=== PATIENT | female | born 1950 | race Caucasian/White ===

== ENCOUNTER 2018-09-04 11:39 | Inpatient (IN) ==
--- NOTE | 2018-09-03 22:26 | Discharge Summary ---
<Blank Miller - Last Filed: 09/04/18 16:37> Orders not resulted at time of discharge: Pending orders 09/04/18 00:01 XR hip complete RT [XR] Routine H/H [Hemoglobin and Hematocrit] [HEME] Routine - Discharge Diagnosis (1) Status post total hip replacement, right Priority: Primary Status: Acute (2) Arthritis of right hip Priority: Primary Status: Acute (3) HLD (hyperlipidemia) Priority: Secondary Status: Chronic Qualifiers: Hyperlipidemia type: mixed hyperlipidemia Qualified Code(s): E78.2 - Mixed hyperlipidemia (4) DM2 (diabetes mellitus, type 2) Priority: Secondary Status: Chronic Qualifiers: Diabetes mellitus dedicated intermodal truck driver insulin use: without dedicated intermodal truck driver use Diabetes mellitus complication status: with unspecified complications Qualified Code(s): E11.8 - Type 2 diabetes mellitus with unspecified complications (5) Acute blood loss anemia Priority: Secondary Status: Acute - Hospital Course Hospital course: Ms. Lozano is a 68 year old female - Time Spent with Patient Total time spent providing and/or coordinating discharge services: - Discharge Medications Home Medications: Aspirin Enteric Coated [Aspirin EC] 325 mg PO BID #20 tablet.dr 09/03/18 [Rx] OxyCODONE Immed Rel [Roxicodone 5 MG] 5 mg PO Q6HR PRN 7 Days #28 tablet 09/03/18 [Rx] Gabapentin [Neurontin] 300 mg PO HS 09/04/18 [History] Ibuprofen [Advil] 200 mg PO Q6H PRN 09/04/18 [History] Metformin HCl 1,000 mg PO BID 09/04/18 [History] Simvastatin [Zocor] 10 mg PO HS 09/04/18 [History] glipiZIDE [Glipizide] 10 mg PO DAILY 09/04/18 [History] Allergies/Adverse Reactions: Allergy/AdvReac Type Severity Reaction Status Date / Time No Known Allergies Allergy Verified 09/04/18 12:08 Primary care physician: Mariela Phipps MD - Patient Status Disposition: Transfer SNF Condition: Good - Discharge Instructions Follow Up With: Blank Miller PAC [Physician Harbor Department Manager] - 09/14/18 9:30 am Mariela Phipps MD [Primary Care Provider] - Additional Instructions: Discharge Instructions: Total Hip Replacement Please call [facility] ([phone]), your Primary Care Physician, or report to the Emergency Room if you have any of the following symptoms: Nausea, vomiting, fever greater that 101.5, swelling, chest pain, shortness of breath, increased pain/redness/drainage/odor for your incision site, numbness/tingling, or any other concerning symptoms. ACTIVITY:Weight-bearing as tolerated for 8 weeks with hip dislocation precautions that physical therapy taught you. You may progress as tolerated under the guidance of your physical therapist. You do not need to sleep with a pillow between your legs. You can also seep on the operative side or on your stomach. Incentive Spirometer 10 times an hour. MEDICATIONS: Upon discharge resume your home medications. Take all the medications as prescribed. Take a stool softener if taking narcotic pain medications. Stool softeners are only effective if you drink enough fluids. Drink 6-8 glass of water or fluids a day, unless this is not allowed for another health problem. Despite using stool softeners, if you haven't had a bowel movement in 3 days, please switch to a gentle laxative. Gentle laxatives are sold over the counter. You should have a bowel movement within 24 hours, if not call the office. You will be discharged from the hospital with a prescription for pain medication. You are encouraged to decrease the use of narcotic pain medication as tolerated. Should you require a refill, please call the office. [facility] prescribes narcotic pain medication for only 4-6 weeks after surgery. If you require pain medication beyond this time period, you may be referred to your Primary Care Physician or to the Pain Clinic for further evaluation. Plan ahead for refills on pain medication as many narcotics either need to be picked up at the office or mailed. It is best to call 48-72 hours in advance of needing a prescription refill so you don't run out of medication. To help control the post-operative pain, you may take NSAIDs (Aleve,Advil, Motrin, ibuprofen, naprosyn) or Tylenol as prescribed on the bottle in addition to the pain medication. ANTICOAGULATION (blood thinners): Continue your Aspirin, Lovenox or Coumadin as prescribed to help prevent a blood clot in the leg or in the lungs. As long as your incision remains dry and you tolerate the NSAIDs (Aleve, Advil, Motrin, Ibu profen, Naprosyn), it is OK to use the NSAIDS while you are taking your anticoagulation medication. Should your incision start to drain, stop the NSAID and contact our office. Common symptoms of blood clot in the legs include: localized pain, swelling, calf tenderness, redness or discoloration of the skin. Blood clot in the lung symptoms include: shortness of breath, rapid pulse, sweating, and chest pain that worsens with deep breathing, coughing up blood, lightheadedness, feelings of anxiety. If you experience any of these symptoms notify your physician immediately, go to the emergency room, or if having trouble breathing, call 911. WOUND CARE: Leave the dressing on for 7 to 10days. You may change the dressing if it is saturated greater than 50%. Do not get the dressing wet at anytime. Wash your hands with antibacterial soap, rinse and dry prior to any wound care. If you have arun the visiting nurse or rehab facility can remove the stapes 10-14 days after surgery and place steri-strips across the wound. Leave the steri-strips in place until they fall off on their own. You may let water from the shower run on top of the steri-strips. If you do not have a visiting nurse or rehab facility, you will need to return to the office at 10-14 days for the arun to be removed. If you have itching or redness around the dressing call the office. FOLLOW-UP: Please follow up with your surgeon in the orthopedic clinic in 6 weeks from the day of surgery. If you have arun that need to be removed, you will need to come back to the office in 10-14 days from the day of surgery. <Yue Lara - Last Filed: 09/07/18 14:17> - NOTES TO OUTPATIENT PROVIDER Notes to Outpatient Provider: Needs repeat H/H on 09/08/18 Orders not resulted at time of discharge: Pending orders 09/04/18 11:20 US anesthesia pain block [US] Routine Date of Encounter: 09/07/18 Time of Encounter: 13:00 - Discharge Diagnosis (1) Status post total hip replacement, right Priority: Primary Status: Acute (2) Arthritis of right hip Priority: Primary Status: Acute (3) Acute blood loss anemia Priority: Secondary Status: Acute (4) DM2 (diabetes mellitus, type 2) Priority: Secondary Status: Chronic Qualifiers: Diabetes mellitus retirement insulin use: without retirement use Diabetes mellitus complication status: with unspecified complications Qualified Code(s): E11.8 - Type 2 diabetes mellitus with unspecified complications (5) HLD (hyperlipidemia) Priority: Secondary Status: Chronic Qualifiers: Hyperlipidemia type: mixed hyperlipidemia Qualified Code(s): E78.2 - Mixed hyperlipidemia - Hospital Course Hospital course: Ms. Lozano is a 68 year old female status post Right THR robotic 09/04/18 with a history of DMT2, anemia, HLD. She participated in therapy who recommended inpatient rehab. Hgb did decrease to 8.5 but is asymptomatic. [facility] have [facility]. She did have max temperature of 99.5 but this did normalize before discharge with reeducation of using incentive spirometer. She is otherwise asymptomatic and discussed this with Dr. Cavanaugh who is comfortable with patient being discharged. Stable for discharge today. Patient seen at bedside, without complaints. A&O x 3 Afebrile, vital signs stable. Dressings to be changed today before discharge. No new drainage. No calf tenderness to palpation. Grossly NV intact distally Labs reviewed. H/H - 9.3/28.7 on 09/05 8.8/27.2 on 09/06 - asymptomatic 8.5/26.5 on 09/07 - asymptomatic Pain control: adequate Participating in PT. She has not made the progress that she thought she would with therapy. Therapy is still recommending ECF and patient agreeable to this. All questions and concerns addressed. Educated on use of incentive spirometer. Encouraged ambulation and proper hydration. Patient educated on post-operative restrictions and post-operative care. Assessment and plan: Continue with postoperative care Discharge plan: ECF [facility] today - Time Spent with Patient Total time spent providing and/or coordinating discharge services: Date of admission: 09/04/18 15:15 Primary care physician: Mariela Phipps MD Consults: 09/04/18 15:13 Consult to Nurse Navigator [CONS] Routine Comment: ortho navigator Consult to Occupational Therapy [CONS] Routine Comment: Evaluate, develop and implement POC Reason for Consult: total hip replacement Does patient have active BEDREST order?: No Is patient medically & hemodynamically stable?: Yes Consult to Physical Therapy [CONS] Routine Comment: Evaluate, develop and implement POC Reason for Consult: total hip replacement Does patient have active BEDREST order?: No Is patient medically & hemodynamically stable?: Yes Consult to Service Captain [CONS] Routine Reason for SW Consult: post op joint replacement RT Post Op Consult [CONS] Routine Discharging clinician: Shawn Cavanaugh Anticipated date of discharge: 09/07/18 Labs on day of discharge: Labs from last 24 hours 09/07/18 09/06/18 09/06/18 05:22 20:53 16:09 Hgb 8.5 L Hct 26.5 L POC Glucose 187 H 147 H 09/06/18 09/06/18 09/05/18 10:56 07:05 19:35 Hgb Hct POC Glucose 81 204 H 301 H - Impressions ITS Impressions Hip X-Ray 09/04/18 00:01 IMPRESSION: Uncomplicated right total hip arthroplasty. D/ / 09/04/2018 15:53:21 Toby Becker MD / [email or web address] Interpreting Provider: Toby Becker MD - Patient Status Functional capacity at discharge: uses cane/walker Overall status at discharge: patient is progressing back to baseline - Diet and Activity Activity: as per physical therapy Diet: advance to your usual diet
--- NOTE | 2018-09-04 11:26 | Anesthesia Evaluation PreOp ---
Date of Encounter: 09/04/18 Time of Encounter: 11:24 - Past History Planned Operation: Robotic R-Total Hip Replacement Cardiac History: Hyperlipidemia Pulmonary History: Denies Any Significant HX EARLY CHILDHOOD EDUCATOR AIDE History: Denies Any Significant HX Other Medical History: Diabetes Type II, Other (R-Hip Arthritis) Anesthesia History: No Prior Anesthetic Complications, Past Anesthesia (C olonscopy, R-shoulder) : No Test: Negative Alcohol Use: unknown Drug use: unknown Medications and Allergies Aspirin Enteric Coated [Aspirin EC] 325 mg PO BID #20 tablet.dr 09/03/18 [Rx] OxyCODONE Immed Rel [Roxicodone 5 MG] 5 mg PO Q6HR PRN 7 Days #28 tablet 09/03/18 [Rx] Allergy/AdvReac Type Severity Reaction Status Date / Time No Known Allergies Allergy Verified 09/04/18 12:02 - Meds/Allergy Pre-op Review Medications Reviewed: Yes Allergies Reviewed: Yes Beta Blockers on Current Med List: No Anesthesia Results - Labs Laboratory Tests 08/24/18 08/24/18 08/24/18 10:56 10:56 10:56 WBC 8.0 Hgb 13.1 Hct 41.1 Plt Count 330 PT 10.7 INR 1.0 APTT 29.5 Sodium Potassium Chloride Carbon Dioxide BUN Creatinine Est GFR (Non-Af Amer) Est Mean Plasma Glucose 166 Hemoglobin A1c 7.4 H 08/24/18 10:56 WBC Hgb Hct Plt Count PT INR APTT Sodium 135 L Potassium 4.1 Chloride 102 Carbon Dioxide 25 BUN 15 Creatinine 0.63 Est GFR (Non-Af Amer) > 60 Est Mean Plasma Glucose Hemoglobin A1c - Imaging EKG: report reviewed (95bpm - SINUS RHYTHM Electronically Signed On 08-26-2018 19:01:20 EDT by Tomy Hinton) Anesthesia Exam O2 Sat Height 1.6 m Weight 60.328 kg O2 Sat by Pulse Oximetry 98 Vital Signs Temp Pulse Resp BP Pulse Ox 98.3 F 96 18 132/90 98 09/04/18 12:00 09/04/18 12:00 09/04/18 12:00 09/04/18 12:00 09/04/18 12:00 Blood glucose: 232 Height: 5'3" Weight: 133# BMI = 23 NPO (# of Hours): MnOC - HEENT Pupil (Motor): Pupils equal, EOMI Mallampati: II Teeth: Normal Oral Opening: Greater than 3 - EARLY CHILDHOOD EDUCATOR AIDE LOC: Oriented EARLY CHILDHOOD EDUCATOR AIDE Motor: Normal RUE, Normal LUE, Normal RLE, Normal LLE, Normal Face EARLY CHILDHOOD EDUCATOR AIDE Sensory: Normal: RUE, LUE, RLE, LLE, Face - Cardiac Rhythm: Regular Murmur: None - Pulmonary Breath Sounds: bilateral Clear Respiratory Effort: Symmetrical Anesthesia Assess/Plan ASA Score: 2 (Chol, DM) Modified [place] Scale for Level of Consciousness: Cooperative, oriented, and tranquil Anesthetic Plan: General, Regional Monitoring Plan: Standard Monitors Recovery Plan: PACU Anes Supervising Prov Stmt: Pt seen/evaluated, R&B discussed, questions answered and consent obtained. Vladislav Ellis MD
[~2018-09-04 11:39] MED LIST: Acetaminophen IV 1,000 MG/100 ML INFUS..BTL IVPB ONE; Famotidine 20 MG/2 ML VIAL IVP ONE; Pregabalin 75 MG CAPSULE PO ONE
[2018-09-04] MEDS: Ringers Solution, Lactated 1,000 ML IVC SCH ×3 (11:40→17:10)
--- NOTE | 2018-09-04 11:42 | History & Physical Report ---
Date of Encounter: 09/04/18 Time of Encounter: 11:42 24 Hour HP Update - Instructions Instructions: If the History and Physical is less than 30 days old and was completed prior to A.M. admission and or procedure and has NOT been updated on calendar day of procedure please complete this update prior to performing procedure. - Update Patient reports changes in Medical Condition: No Changes in examination, assessment, or condition: No Changes in Medication: No Preop tests/diagnostics Reviewed: Yes Surgery Remains Indicated: Yes Consent for Planned Operative Procedure(s) Verified: Yes - Pre-Operative Checklist Preoperative Checklist Indicated: No Prophylactic Antibiotic Ordered: Yes Is VTE Prophylaxis Indicated?: Yes
[2018-09-04] MEDS ORDERED: CeFAZolin Syr 2,000MG/20 ML 2,000 MG/20 ML SYRINGE IVPB ONE (12:02)
[2018-09-04] MEDS ORDERED: Ethanol\\Acetic Acid\\Na Ace\\Ben 1,000 ML IRRIG.SOLN IR ONE (12:06)
[2018-09-04] MEDS ORDERED: ROPIVACAINE HCL/PF 0.5% 30 ML VIAL ONE (12:06)
[2018-09-04] MEDS ORDERED: Tetracaine/PF 20 MG/2 ML AMPUL ONE (12:06)
[2018-09-04] MEDS ORDERED: Dexamethasone 4 MG/ML VIAL IVP ONE (12:17)
[2018-09-04] MEDS ORDERED: *HR* HYDROmorphone (PF) 1 MG/ML SYRINGE IVP PRN (12:17)
[2018-09-04] MEDS ORDERED: *HR* Labetalol 20 MG/4 ML SYRINGE IVP PRN (12:17)
[2018-09-04] MEDS ORDERED: *HR* Promethazine 25 MG/ML VIAL IVP PRN (12:17)
[2018-09-04] MEDS ORDERED: Ondansetron 4 MG/2 ML VIAL IVP ONE (12:17)
[2018-09-04] MEDS ORDERED: Morphine Sulfate/PF 5mg/10mL Vial ONE (12:23)
[2018-09-04] MEDS ORDERED: Lidocaine -MPF 1% 5 ML AMPUL ONE (12:36)
[2018-09-04] MEDS ORDERED: Lidocaine -MPF 2% 2 ML VIAL ONE (12:47)
[2018-09-04] MEDS ORDERED: Propofol 500 MG/50 ML INFUS..BTL ONE (12:47)
[2018-09-04] MEDS ORDERED: Dexamethasone 4 MG/ML VIAL ONE (12:47)
[2018-09-04] MEDS ORDERED: *HR* Midazolam HCl 2 MG/2 ML VIAL ONE (12:47)
[2018-09-04] MEDS ORDERED: *HR* Propofol 200 MG/20 ML VIAL IVP ONE (12:47)
[2018-09-04] MEDS ORDERED: Ondansetron 4 MG/2 ML VIAL ONE (12:47)
[2018-09-04] MEDS ORDERED: EPHEDrine 50 MG/ML VIAL ONE (13:01)
[2018-09-04] MEDS ORDERED: *HR* PHENYLEPHRINE 1,000 MCG/10 ML SYRINGE IVP ONE (13:22)
--- NOTE | 2018-09-04 13:25 | Anesthesia Procedures ---
Date of Encounter: 09/04/18 Time of Encounter: 12:35 Procedures: Anesthesia - Epidural/Spinal Patient ID/Chart reviewed: Yes Patient examined: Yes Consent Obtained: Yes Supplemental Oxygen: Nasal Cannula Supplemental Oxygen Rate (L/min): 2 Sedation: Versed (mg): 2 Site Prep: Sterile prep and drape, Povidone-Iodine 1% Patient position: upright Local Anesthetic: Lidocaine 1% Amount of Local Anesthetic used: 3 Interspace Used: L3-L4 Blood: No CSF: Yes Paresthesia: No Spinal Needle Gauge: 22 Spinal Dose: 2.5cc 0.5% PF marcaine with 250mcg PF duramorph Procedure: sitting in HR1, monitors and O2 applied, time-out performed. Sterile prep/drape, 1% lido to L3-4, 22g quincke to interspace, +csf, -heme, -paresthesia, smooth inj., naac. Performed by srna. aston
--- NOTE | 2018-09-04 14:01 | Orthopedic Operative Note ---
Date of procedure: 09/04/18 Pre-op diagnosis: Right hip OA Post-op diagnosis: same Procedure: Procedure: Right Total Hip Replacment robotic-assisted Estimated blood loss: 200 cc Hardware: Metal and polyethylene replacement. [place] DM Cup: 52 cup Femoral size 6 stem Head: 12 head with Sanjana Procedural Notes: Grade 4 arthritic changes femoral head acetabular socket, procedure performed with robotic assistance. 5 mm short operative vs non operative as per preop CT scan Operative procedure: The patient was brought to the operating room and placed on the operating room table. After general anesthesia was administered the patient was placed in the lateral decubitus position with the operative leg up. All pressure points were padded appropriately and the head was stabilized in the neutral position. The operative extremity was prepped and draped in the sterile surgical fashion patient received IV antibiotic prior to skin incision. 3 Steinmann pins were placed in the iliac crest 3 cm proximal to the anterior superior iliac spine this was for the robotic-assisted sensor. This was done through a small 2 cm incision. A standard posterior approach is made to the operative hip, the incision was made through the skin and subcutaneous tissue hemostasis was obtained with Bovie cautery. Using careful sharp dissection the fascia was identified and incised exposing the external rotators. The greater trochanter was marked, and length was measured at this time utilizing robotic assistance. The external rotators were released off the greater trochanter and tagged with #2 FiberWire suture. The capsule was T'd open and the hip was brought into internal rotation. Patient noted to have grade 4 arthritic changes femoral head. The femoral neck cut was made at the appropriate level roughly 15 mm proximal to the lesser t rochanter aced on preoperative templating. An anterior capsulotomy was performed for the anterior retractor. Soft tissues removed from the acetabulum. Patient noted to have grade 4 arthritic changes acetabulum. The acetabulum reference point was confirmed. The acetabulum was then mapped with robotic assistance. Based on the preoperative plan the acetabulum was reamed in one step with a 51 reamer. The 52 acetabulum was impacted with robotic assistance and 37 degrees of abduction and 22 degrees of anteversion. The hip was brought back in to internal rotation and prepared with the box cut ter followed by the canal finder followed by the reaming process to a size 5/6 broaching process in 20 degrees anteversion. It was broached up to the appropriate size 6 Trial reduction revealed leg lengths close to normal. The femoral implant was impacted in place in 20 degrees of anteversion. Trial reduction found the hip to be stable with 12 head and Sanjana. The trials were removed and the real implants were impacted in place. The hip was reduced, patient had robotic confirmed leg length of 13 mm longer than the contralateral side. The hip had excellent stability with forward flexion to 90 degrees adduction of 30 degrees and internal rotation of 60 degrees. The hip had no shuck. The hip sat with an antibacterial solution. It was irrigated out with 2 L of pulse irrigation. The Steinmann pins were removed. The hip was closed by the PA. The deep tissue was irrigated and closed deep with #1 PDS suture superficially with 0 PDS suture and skin was closed with Dermabond and zip tie. The patient was placed in a sterile dressing and abduction pillow. The patient was extubated and transferred to the recovery room in stable condition. Anesthesia: spinal Surgeon: Shawn Cavanaugh Was there an cafe assistant present: No Estimated blood loss (cc): 200 Condition: stable Disposition: PACU
[2018-09-04] MEDS ORDERED: *HR* Dextrose 50 % in Water (Syg) 50 ML SYRINGE IVP PRN (15:13)
[2018-09-04] MEDS ORDERED: Naloxone 0.4 MG/ML INJ IVP PRN (15:13)
[2018-09-04] MEDS ORDERED: Temazepam 15 MG CAPSULE PO PRN (15:13)
[2018-09-04] MEDS ORDERED: MOM Conc 10 ML UD.LIQ PO PRN (15:13)
[2018-09-04] MEDS ORDERED: Dextrose Gel 15 GM/37.5 ML TUBE PO PRN ×2 (15:13)
[2018-09-04] MEDS ORDERED: D5% in Water 1,000 ML IVC PRN (15:13)
[2018-09-04] MEDS ORDERED: Sennosides 8.6 MG TABLET PO PRN (15:13)
[2018-09-04 15:20] LABS: Hematocrit 31.5 % (35.3-44.9); Hemoglobin 10.2 g/dL (11.5-15.4)
--- NOTE | 2018-09-04 15:40 | Anesthesia Evaluation Post Op ---
Date of Encounter: 09/04/18 Time of Encounter: 15:20 - Vital Signs Vital Signs: Vital Signs/O2 Sat, Most Current Temp Pulse Resp BP Pulse Ox 97.1 F L 68 16 109/63 96 09/04/18 14:52 09/04/18 15:12 09/04/18 15:12 09/04/18 15:12 09/04/18 15:12 - Lungs Lungs: Clear Ascult./Percussion - Airway Airway: Non-obstructed, Obstructed - Cardiovascular Regular Rate, Baseline Rhythm - Mental Status Mental Status: Alert & Oriented, Answers Appropriately - Pain Pain Scale: 0 Pain Scale used: Numeric (1 - 10) - Nausea Vomiting Nausea Vomiting: Not Present - Hydration Hydration: Tolerates oral liquids, Ice chips, Has not voided - Discharge PostOp Status: Transfer Patient to floor
--- NOTE | 2018-09-04 16:39 | Physician Discharge Referral ---
Home Health/Hosp Referral Info Transfer to: Home Health Attending Provider: Provider in Charge Post Discharge: PCP - Diagnosis (1) Status post total hip replacement, right Priority: Primary Status: Acute (2) Arthritis of right hip Priority: Primary Status: Acute (3) HLD (hyperlipidemia) Status: Chronic (4) DM2 (diabetes mellitus, type 2) Status: Chronic (5) Acute blood loss anemia Status: Acute - Respiratory Orders Smoking Cessation: Smoking cessation has been advised. For more information, call the [place] Tobacco Quit Line at 7-979-VGPE-NOW. - Diet/Nutrition Diet/Nutrition Orders: Regular - Activity Activity Orders: Up ad connie, Ambulate - Services Needed Following services are medically necessary services: Nursing, Home Health Aide, Physical Therapy, Occupational Therapy Home Care Orders: Opsite placed. Keep dressing intact until first follow up appointment. If > 50% saturated, notify office, remove dressing and place appropriate dressing back in place. Leave Zipline intact. Opsite dressing is water resistant, not water- proof. OK to shower, but do not get dressing wet Total Hip replacement Precautions Apply cold therapy 3-6x/day for 20 minutes at a time. Encourage ambulation throughout the day and incentive spirometer 10x/hour. Elevate affected extremity as tolerated. Brace: Wear hip abduction pillow when laying/sleeping. - Transfer Medications Home Medications: Aspirin Enteric Coated [Aspirin EC] 325 mg PO BID #20 tablet. 09/03/18 [Rx] OxyCODONE Immed Rel [Roxicodone 5 MG] 5 mg PO Q6HR PRN 7 Days #28 tablet 09/03/18 [Rx] Gabapentin [Neurontin] 300 mg PO HS 09/04/18 [History] Ibuprofen [Advil] 200 mg PO Q6H PRN 09/04/18 [History] Metformin HCl 1,000 mg PO BID 09/04/18 [History] Naproxen Sodium [Aleve] 220 mg PO Q8H PRN 09/04/18 [History] Simvastatin [Zocor] 10 mg PO HS 09/04/18 [History] glipiZIDE [Glipizide] 10 mg PO DAILY 09/04/18 [History] Allergies/Adverse Reactions: Allergy/AdvReac Type Severity Reaction Status Date / Time No Known Allergies Allergy Verified 09/04/18 12:08 Certification: Further, I certify that my clinical findings support that this patient is homebound (i.e. absences from home require considerable and taxing effort and are for medical reasons or orthodoxy services or infrequently or short duration when for other reasons) because: Homebound Reason: Post-surgery restriction and or conditions limit ability to leave home Attestation: My signature below is to certify that this patient is under my care and that I, or nurse practitioner, or a physician's seed laboratory assistant working with me, has a [id number] encounter with this patient.
[2018-09-04] MEDS: *HR* Metformin 500 MG TABLET PO SCH (17:10)
[2018-09-04] MEDS: Ascorbic Acid 500 MG TABLET PO SCH (17:10)
[2018-09-04] MEDS: Insulin LISPRO 300 UNITS/3 ML VIAL SQ SCH ×2 (17:11→22:12)
[2018-09-04] MEDS: *HR* Enoxaparin 30 MG/0.3 ML SYRINGE SQ SCH (17:11)
[2018-09-04] MEDS ORDERED: *HR* Enoxaparin 30 MG/0.3 ML SYRINGE SQ SCH (18:00)
[2018-09-04] MEDS: Ondansetron 4 MG/2 ML VIAL IVP PRN (21:02)
[2018-09-04] MEDS: Gabapentin 300 MG CAPSULE PO SCH (22:11)
[2018-09-04] MEDS: traMADol 50 MG TABLET PO PRN (22:32)
[2018-09-05] MEDS: Ringers Solution, Lactated 1,000 ML IVC SCH (05:44)
[2018-09-05] MEDS: *HR* Enoxaparin 30 MG/0.3 ML SYRINGE SQ SCH ×2 (05:46→17:40)
--- NOTE | 2018-09-05 06:19 | Orthopedics Progress Note ---
Date of Encounter: 09/05/18 Time of Encounter: 06:19 Subjective Interval history: Patient was seen this morning doing well without complaints. Afebrile vital signs stable. Operative extremity: Neurovascularly intact Dressing clean dry and intact Calves nontender Assessment and plan: Continue with postoperative care Objective Vital signs: Vital Signs Temp Pulse Resp BP Pulse Ox 09/05/18 03:37 97.9 F 82 16 137/68 96 09/04/18 23:13 97.6 F 72 16 107/67 98 09/04/18 18:18 98.1 F 76 16 110/71 97 09/04/18 17:40 97.4 F L 88 15 108/66 94 09/04/18 16:35 97.3 F L 79 14 107/69 97 09/04/18 16:05 96.6 F L 64 14 109/71 98 09/04/18 15:25 96.4 F L 66 16 105/65 96 09/04/18 15:12 68 16 109/63 96 09/04/18 15:02 71 16 104/64 92 09/04/18 14:52 97.1 F L 73 16 103/64 95 09/04/18 14:42 87 16 100/73 95 09/04/18 14:32 88 16 97/55 97 09/04/18 14:22 97.0 F L 97 24 99/66 98 09/04/18 12:42 77 14 136/80 98 09/04/18 12:34 95 16 167/97 99 09/04/18 12:00 98.3 F 96 18 132/90 98 Intake and Output 09/04/18 09/04/18 09/05/18 15:59 23:59 07:59 Intake Total 1000 / 1000 100 / 100 2720 / 2720 Output Total 200 / 200 700 / 700 Balance 800 / 800 100 / 100 2019 Intake: IV Fluids 1000 / 1000 100 / 100 2120 / 2120 Lactated Ringers 1,000 ML @ 75 1000 / 1000 2000 / 2000 mls/hr IVC .[id number] [facility] Rx#: [id number] Ancef Syringe 2,000 MG/20 ML 2, 20 / 20 000 mg In 20 ml @ 200 mls/hr IVPB PREOP ONE Rx#:[id number] Ancef 2,000 MG In 0.9 % Sodium 100 / 100 Chloride 100 ML @ 200 mls/hr IVPB Q8H [facility] Rx#:[id number] Oral 600 / 600 Output: Urine 700 / 700 Estimated Blood Loss 200 / 200 Other: # Voids 1 Weight 60.328 kg 60.33 kg Blood Glucose* 232 229 Patient Weight 09/05/18 23:59 Weight 60.33 kg - Labs CBC & BMP: 09/04/18 14:52 Labs: Abnormal lab results Hgb 10.2 g/dL (11.5-15.4) L 09/04/18 14:52 Hct 31.5 % (35.3-44.9) L 09/04/18 14:52 POC Glucose 232 mg/dL (70-99) H 09/04/18 11:56 - VTE Documentation of Mechanical Device: Venous foot pump, device Consult Discharge Plan - Plan Referrals: Mariela Phipps MD [Primary Care Provider] -
[2018-09-05] MEDS: *HR* OxyCODONE/APAP 5/325 TABLET PO PRN (06:22)
[2018-09-05 06:23] LABS: Hematocrit 28.7 % (35.3-44.9); Hemoglobin 9.3 g/dL (11.5-15.4)
[2018-09-05 06:39] LABS: BUN/Creatinine Ratio 19 (6-26); Blood Urea Nitrogen 8 mg/dL (8-23); Calcium 8.6 mg/dL (8.6-10.3); Carbon Dioxide 25 mEq/L (23-29); Chloride 104 mEq/L (98-107); Glucose 266 mg/dL (70-105); Osmolality,Calculated 286 (280-300); Sodium 134 mEq/L (136-145); eGFR For Non-African Americans > 60 (> 60)
[2018-09-05] MEDS: Insulin LISPRO 300 UNITS/3 ML VIAL SQ SCH ×4 (08:54→20:07)
[2018-09-05] MEDS: *HR* GlipiZIDE 5 MG TABLET PO SCH (08:55)
[2018-09-05] MEDS: *HR* Metformin 500 MG TABLET PO SCH ×2 (08:55→17:40)
[2018-09-05] MEDS: Ascorbic Acid 500 MG TABLET PO SCH ×2 (08:55→17:40)
[2018-09-05] MEDS: Multivit/Ca/Min/Fe/FA 1 TAB TABLET PO SCH (08:55)
[2018-09-05] MEDS: *HR* OxyCODONE Immed Rel 5 MG TABLET PO PRN ×2 (15:26→20:09)
[2018-09-05] MEDS: traMADol 50 MG TABLET PO PRN (17:40)
--- NOTE | 2018-09-05 19:05 | Event Note ---
Date of Encounter: 09/05/18 Time of Encounter: 12:30 PCR - POD#1 s/p Right THR robotic 09/04 Patient seen at bedside, without complaints. A&O x 3 Afebrile, vital signs stable. Labs reviewed. H/H - 9.3/28.7 stable, asymptomatic Pain control: adequate Participating in PT. Patient states she thought she would have better motion right after surgery than she is having and at this time she is concerned about safety going home. PT has recommended ECF placement for rehab. Patient would like to see how she progresses with afternoon therapy and again in the morning before deciding ECF vs home therapy. All questions and concerns addressed. Educated on use of incentive spirometer. Encouraged ambulation and proper hydration. Patient educated on post-operative restrictions and post-operative care. Assessment and plan: Continue with postoperative care Discharge plan: ECF vs HH depending on progress made with therapy by tomorrow
[2018-09-05] MEDS: Gabapentin 300 MG CAPSULE PO SCH (20:09)
[2018-09-05] MEDS ORDERED: Ketorolac 30 MG/ML VIAL IVP PRN (22:18)
[2018-09-05] MEDS: Acetaminophen IV 1,000 MG/100 ML INFUS..BTL IVPB SCH (23:15)
[2018-09-06] MEDS: *HR* OxyCODONE Immed Rel 5 MG TABLET PO PRN ×2 (01:17→21:03)
[2018-09-06 04:58] LABS: Hematocrit 27.2 % (35.3-44.9); Hemoglobin 8.8 g/dL (11.5-15.4)
[2018-09-06 05:09] LABS: BUN/Creatinine Ratio 23 (6-26); Blood Urea Nitrogen 9 mg/dL (8-23); Calcium 8.1 mg/dL (8.6-10.3); Carbon Dioxide 24 mEq/L (23-29); Chloride 104 mEq/L (98-107); Glucose 215 mg/dL (70-105); Osmolality,Calculated 285 (280-300); Potassium 3.6 mEq/L (3.5-5.1); Sodium 135 mEq/L (136-145); eGFR For Non-African Americans > 60 (> 60)
--- NOTE | 2018-09-06 06:41 | Orthopedics Progress Note ---
Date of Encounter: 09/06/18 Time of Encounter: 06:40 Subjective Interval history: Patient was seen this morning doing well without complaints. Afebrile vital signs stable. Operative extremity: Neurovascularly intact Dressing clean dry and intact Calves nontender Assessment and plan: Continue with postoperative care Hematocrit 27 Objective Vital signs: Vital Signs Temp Pulse Resp BP Pulse Ox 09/06/18 03:27 98.7 F 92 16 108/64 96 09/06/18 00:05 98.6 F 86 16 119/74 98 09/05/18 19:14 99.5 F 112 16 99/65 96 09/05/18 15:35 98.0 F 101 20 133/80 98 09/05/18 11:29 98.7 F 89 18 105/85 96 09/05/18 08:00 97.9 F 78 16 96/62 96 Intake and Output 09/05/18 09/05/18 09/06/18 15:59 23:59 07:59 Intake Total 340 / 340 100 / 100 100 / 100 Output Total 600 / 600 450 / 450 900 / 900 Balance -260 / -260 -350 / -350 -800 / -800 Intake: IV Fluids 100 / 100 Ofirmev 1,000 mg/100 ml 1,000 100 / 100 mg In 100 ml @ 400 mls/hr IVPB Q6HR [facility] Rx#:[id number] Oral 340 / 340 100 / 100 Output: Urine 600 / 600 450 / 450 900 / 900 Other: Meal Breakfast Percent of Meal Consumed 100% # Voids 1 Weight 61.2 kg Blood Glucose* 180 301 Patient Weight 09/06/18 23:59 Weight 61.2 kg - Labs CBC & BMP: 09/06/18 04:32 09/06/18 04:32 Labs: Abnormal lab results Hgb 8.8 g/dL (11.5-15.4) L 09/06/18 04:32 Hct 27.2 % (35.3-44.9) L 09/06/18 04:32 Sodium 135 mEq/L (136-145) L 09/06/18 04:32 Creatinine 0.40 mg/dL (0.60-1.20) L 09/06/18 04:32 Glucose 215 mg/dL (70-105) H 09/06/18 04:32 POC Glucose 180 mg/dL (70-99) H 09/05/18 15:57 Calcium 8.1 mg/dL (8.6-10.3) L 09/06/18 04:32 - VTE Documentation of Mechanical Device: Venous foot pump, device Consult Discharge Plan - Plan Referrals: Mariela Phipps MD [Primary Care Provider] -
[2018-09-06] MEDS: Acetaminophen IV 1,000 MG/100 ML INFUS..BTL IVPB SCH ×3 (06:45→19:10)
[2018-09-06] MEDS: *HR* Enoxaparin 30 MG/0.3 ML SYRINGE SQ SCH ×2 (06:45→18:31)
[2018-09-06] MEDS: Multivit/Ca/Min/Fe/FA 1 TAB TABLET PO SCH (07:49)
[2018-09-06] MEDS: *HR* Metformin 500 MG TABLET PO SCH ×2 (07:49→18:31)
[2018-09-06] MEDS: *HR* GlipiZIDE 5 MG TABLET PO SCH (07:49)
[2018-09-06] MEDS: Ascorbic Acid 500 MG TABLET PO SCH ×2 (07:50→17:53)
[2018-09-06] MEDS: Insulin LISPRO 300 UNITS/3 ML VIAL SQ SCH ×4 (07:50→21:14)
--- NOTE | 2018-09-06 12:47 | Physician Discharge Referral ---
ExtendedCare Referral Info Transfer To: [facility] Provider in Charge: Mao Loomis Diagnosis (1) Status post total hip replacement, right Priority: Primary Status: Acute (2) Arthritis of right hip Priority: Primary Status: Acute (3) Acute blood loss anemia Priority: Secondary Status: Acute (4) DM2 (diabetes mellitus, type 2) Priority: Secondary Status: Chronic (5) HLD (hyperlipidemia) Priority: Secondary Status: Chronic Expected Duration of Placement: <30 days Prognosis: Good Aware of Diagnosis: Patient Aware of Prognosis: Patient - Transfer Medications Home Medications: Aspirin Enteric Coated [Aspirin EC] 325 mg PO BID #20 tablet.dr 09/03/18 [Rx] OxyCODONE Immed Rel [Roxicodone 5 MG] 5 mg PO Q6HR PRN 7 Days #28 tablet 09/03/18 [Rx] Gabapentin [Neurontin] 300 mg PO HS 09/04/18 [History] Ibuprofen [Advil] 200 mg PO Q6H PRN 09/04/18 [History] Metformin HCl 1,000 mg PO BID 09/04/18 [History] Naproxen Sodium [Aleve] 220 mg PO Q8H PRN 09/04/18 [History] Simvastatin [Zocor] 10 mg PO HS 09/04/18 [History] glipiZIDE [Glipizide] 10 mg PO DAILY 09/04/18 [History] Allergies/Adverse Reactions: Allergy/AdvReac Type Severity Reaction Status Date / Time No Known Allergies Allergy Verified 09/04/18 12:08 - Respiratory Orders Smoking Cessation: Smoking cessation has been advised. For more information, call the [place] Tobacco Quit Line at 3-263-YQCZ-NOW. - Lab Orders Lab Orders: CBC (Needs repeat H/H on 09/08/18) - Ancillary Orders May use pressure relief devices daily prn, May go on NICANOR w/family/respon green party w/meds at nurse discretion PRN, May consult with Dentist, Customs Appraiser, Senior Consumer Insights Consultant PRN - Advance Directives Code Status: Full Code - Mobility Orders Chair, Ambulate - Rehabiliation Orders Rehab Potential: Good Rehab Orders: ROM Exercises, Evaluation for Physical Therapy, Evaluation for Occupational Therapy Other: Opsite dressing, leave intact until first post-operative visit. If dressing becomes >50% saturated, contact office, remove dressing and place appropriate dressing in its place. Do not allow for dressing to get wet. Zipline/Rupinder in place, plan to remove at post-operative day #14-16. Total Joint Precautions x 6 weeks Apply cold therapy wrap 3-6x/day for 20 minutes at a time. Encourage ambulation throughout the day Use Incentive spirometer 10x/hour. Elevate affected extremity above heart as tolerated. Brace: Wear hip abductor brace at night x 6 weeks. - Treatments Skin tear care topically daily PRN per policy - Diet Orders Regular CERTIFICATION: I certify that the transfer of the above named patient to an Extended Care Facility is necessary for the continuing treatment of the diagnosis listed. The above information is true and accurate reflection of patient's current condition. Confidential - Redisclosure prohibited without a patient's written consent.
--- NOTE | 2018-09-06 12:50 | Event Note ---
Date of Encounter: 09/06/18 Time of Encounter: 11:30 PCR - POD#2 s/p Right THR robotic 09/04 Patient seen at bedside, without complaints. A&O x 3 Afebrile, vital signs stable. Labs reviewed. H/H - 9.3/28.7 on 09/05 8.8/27.2 on 09/06 - asymptomatic, will continue to monitor Pain control: adequate Participating in PT. She has not made the progress that she thought she would with therapy. Therapy is still recommending ECF and patient agreeable to this. All questions and concerns addressed. Educated on use of incentive spirometer. Encouraged ambulation and proper hydration. Patient educated on post-operative restrictions and post-operative care. Assessment and plan: Continue with postoperative care Discharge plan: ECF pending authorization
[2018-09-06] MEDS: Gabapentin 300 MG CAPSULE PO SCH (21:03)
[2018-09-06] MEDS: Ondansetron 4 MG/2 ML VIAL IVP PRN (21:04)
[2018-09-07 06:06] LABS: Hematocrit 26.5 % (35.3-44.9); Hemoglobin 8.5 g/dL (11.5-15.4)
[2018-09-07] MEDS: *HR* Enoxaparin 30 MG/0.3 ML SYRINGE SQ SCH (06:35)
[2018-09-07] MEDS: Acetaminophen IV 1,000 MG/100 ML INFUS..BTL IVPB SCH ×3 (06:54→12:21)
--- NOTE | 2018-09-07 07:46 | Orthopedics Progress Note ---
Date of Encounter: 09/07/18 Time of Encounter: 07:46 Subjective Interval history: Patient was seen this morning doing well without complaints. Afebrile vital signs stable. Operative extremity: Neurovascularly intact Dressing clean dry and intact Calves nontender Assessment and plan: Continue with postoperative care Hb 8.5 plan for discharge today Objective Vital signs: Vital Signs Temp Pulse Resp BP Pulse Ox 09/07/18 07:34 99.5 F 106 18 120/73 96 09/07/18 04:47 99.2 F 98 16 118/74 97 09/06/18 23:37 99.1 F 91 16 114/68 96 09/06/18 20:43 99.3 F 95 16 118/75 90 09/06/18 19:32 99.1 F 100 18 115/72 96 09/06/18 16:05 99 F 88 20 117/72 99 09/06/18 14:56 99.1 F 104 18 116/66 99 09/06/18 10:54 98.4 F 85 16 110/68 98 Intake and Output 09/06/18 09/06/18 09/07/18 15:59 23:59 07:59 Intake Total 100 / 100 550 / 550 0 / 0 Output Total 700 / 700 700 / 700 0 / 0 Balance -600 / -600 -150 / -150 0 / 0 Intake: IV Fluids 100 / 100 Ofirmev 1,000 mg/100 ml 1,000 100 / 100 mg In 100 ml @ 400 mls/hr IVPB Q6HR [facility] Rx#:[id number] Oral 100 / 100 450 / 450 0 / 0 Output: Urine 700 / 700 700 / 700 0 / 0 Other: Meal Breakfast Percent of Meal Consumed 10% # Voids 2 # Urine Diapers 1 Weight 60.94 kg Blood Glucose* 81 187 151 Patient Weight 09/07/18 23:59 Weight 60.94 kg - Labs CBC & BMP: 09/07/18 05:22 09/06/18 04:32 Labs: Abnormal lab results Hgb 8.5 g/dL (11.5-15.4) L 09/07/18 05:22 Hct 26.5 % (35.3-44.9) L 09/07/18 05:22 Sodium 135 mEq/L (136-145) L 09/06/18 04:32 Creatinine 0.40 mg/dL (0.60-1.20) L 09/06/18 04:32 Glucose 215 mg/dL (70-105) H 09/06/18 04:32 POC Glucose 187 mg/dL (70-99) H 09/06/18 20:53 Calcium 8.1 mg/dL (8.6-10.3) L 09/06/18 04:32 - VTE Documentation of Mechanical Device: Venous foot pump, device Consult Discharge Plan - Plan Referrals: Mariela Phipps MD [Primary Care Provider] -
[2018-09-07] MEDS: *HR* GlipiZIDE 5 MG TABLET PO SCH (07:47)
[2018-09-07] MEDS: *HR* OxyCODONE Immed Rel 5 MG TABLET PO PRN (07:48)
[2018-09-07] MEDS: *HR* Metformin 500 MG TABLET PO SCH (07:48)
[2018-09-07] MEDS: Insulin LISPRO 300 UNITS/3 ML VIAL SQ SCH ×2 (07:50→12:08)
[2018-09-07] MEDS: Multivit/Ca/Min/Fe/FA 1 TAB TABLET PO SCH (07:53)
[2018-09-07] MEDS: Ascorbic Acid 500 MG TABLET PO SCH (07:53)
[2018-09-07 11:33] VITALS: BP 118/60
[2018-09-07] MEDS: *HR* OxyCODONE/APAP 5/325 TABLET PO PRN (12:07)
== END 2018-09-07 14:00 | DRG 470 ==
LOC: SAMDAY 11:39 → 3NENU 15:15
PROVIDERS: ADMIT Orthopaedic Surgery; ATTEND Orthopaedic Surgery